=== PATIENT | female | born 1960 | race Caucasian/White ===

== ENCOUNTER → 2023-10-05 | Outpatient (CLI) | payer OTHER, SELFPAY ==
[2023-10-05 16:12] LABS: Erythrocyte Sedimentation Rate 11 mm/hr (0-30)
[2023-10-05 16:15] LABS: Absolute Lymphocyte Count 1.69 X10^3/uL (0.83-4.51); Absolute Neutrophil Count 5.4 X10^3/uL (2.0-7.7); Basophil# 0.07 X10^3/uL; Basophil% 0.9 % (0-1); Eosinophil# 0.09 X10^3/uL; Eosinophils% 1.1 % (0-5); Hematocrit 45.5 % (37-47); Hemoglobin 14.6 g/dL (12.0-15.0); Lymphocyte # 1.69 X10^3/ul (0.83-4.51); Lymphocyte % 21.4 % (19-41); Mean Corp Hgb Conc 32.1 g/dL (32-36); Mean Corpuscular Hgb 29.7 pg (27.0-32.0); Mean Corpuscular Volume 92.5 fL (81-99); Mean Platelet Vol. 10.9 fl (6.2-12.0); Monocyte% 7.6 % (0-10); NRBC Flagged by Analyzer 0 % (0-5); Neutrophil # 5.41 X10^3/uL (2.7-7.7); Neutrophil % 68.7 % (47-70); Platelet Count 300 K/mm3 (150-450); RBC Distribution Width CV 12.9 % (11.6-14.6); RBC Distribution Width SD 43.4 fl (35.1-43.9); Red Blood Count 4.92 M/mm3 (4.2-5.4); White Blood Count 7.9 K/mm3 (4.4-11.0)
[2023-10-05 16:44] LABS: AST(SGOT) 23 U/L (15-37); Alanine Aminotransfer ALT/SGPT 33 U/L (13-56); Albumin, Serum 4.1 g/dL (3.2-5.0); Alkaline Phosphatase 90 U/L (45-117); Anion Gap 6 (5-15); BUN 14 mg/dL (7-18); CRP < 2.90 mg/L (0.0-3.0); Calcium,Total 9.5 mg/dL (8.5-10.1); Chloride 106 mmol/L (98-107); Creatinine, Serum 0.93 mg/dL (0.55-1.02); EST Glomerular Filtration Rate 65 mL/min (>60); Est Glom Filt Rate - Afr Amer 78 mL/min (>60); Globulin 4.1 g/dL (2.2-4.2); Glucose 94 mg/dL (74-106); LDH 175 U/L (84-246); Lipase 39 U/L (13-75); Potassium 4.2 mmol/L (3.5-5.1); Protein, Total 8.2 g/dL (6.4-8.2); Sodium Level 138 mmol/L (136-145)
[2023-10-08 12:10] LABS: Anti-Mitochondrial AB <20.0 Units (0.0-20.0)
[2023-10-11 00:06] LABS: ACCA 8 units (0-90); ALCA 10 units (0-60); AMCA 9 units (0-100); Cytoplasmic Ab (C-ANCA) <1:20 titer (Neg:<1:20); Endomysial Antibody IgA Negative (Negative); Gastrin, Serum 100 pg/mL (0-115); Immunoglobulin A 192 mg/dL (87-352); Immunoglobulin E 24 IU/mL (6-495); Immunoglobulin G 1261 mg/dL (586-1602); Immunoglobulin M 94 mg/dL (26-217); Perinuclear Ab (P-ANCA) <1:20 titer (Neg:<1:20); gASCA 0 units (0-50); t-Transglutaminase IgA <2 U/mL (0-3)
== END | disposition home or self-care (01) ==
DX: R10.9 Unspecified abdominal pain (principal)
CPT/HCPCS: 36415; 80053; 82784; 82785; 82941; 83516; 83615; 83690; 85025; 85652; 86036; 86140; 86255; 86256; 86316; 86671

== ENCOUNTER 2023-10-20 13:11 | Day surgery (SDC) | payer OTHER, SELFPAY ==
[2023-10-20] VITALS (8 sets, daily range): BP systolic 100–127; BP diastolic 52–70; PULSE 58–77; RESP 16–18; TEMP 36.2–36.6; O2SAT 97–100; BMI 33.6
--- NOTE | 2023-10-20 | GASB_PTH ---
PATIENT: JAMIE DESAI LOC: EN U#:[id number] AGE/SX: 63/F ROOM: RE10/20/[address]: Dr. Felipe Hicks DO : 1960 BED: DIS: 10/20/2023 SPEC #: [id number] RECD: 10/20/23 18:33 STATUS: DORIS LO #: [id number] HARJEET: 10/20/23 00:[address]: Felipe Hicks DEPT: SURGICAL PATHOLOGY RECD BY: Nikhil Oneill Tissues: A - Duodenum, NOS B - Gastric mucous membrane C - Esophageal mucous membrane Procedures: Special Stain Group I Surgery Specimen Level IV Alcian Blue/PAS (control) HEADER OPERATION: EGD with biopsy PRE-OP DIAGNOSIS: Abdominal pain TISSUE SUBMITTED: A- Duodenum biopsy, B- Gastric body biopsy, C- Distal esophagus biopsy MICROSCOPIC DIAGNOSIS A. Duodenum, biopsy: No pathologic change. B. Gastric body, biopsy: Mild chronic gastritis. C. Distal esophagus, biopsy: Gastroesophageal junction biopsy with mild chronic inflammation. No evidence of goblet cell metaplasia. See comment. Te 10/22/2023 COMMENT B. The results of immunohistochemistry for Helicobacter pylori will be reported separately ([id number]). C. Alcian blue/PAS stain with matched control is used in the evaluation of the specimen. MICROSCOPIC DESCRIPTION Slides are reviewed. GROSS DESCRIPTION A. Received in fixative is one container labeled with the patient's name and designated Duodenum biopsy. The specimen consists of multiple irregular fragments of light [place] soft tissue that in aggregate measure 0.9 x 0.3 x 0.1 cm. The specimen is totally submitted in one cassette. B. Received in fixative is one container labeled with the patient's name and designated Gastric body biopsy. The specimen consists of multiple irregular fragments of light [place] soft tissue that in aggregate measure 1.0 x 0.2 x 0.1 cm. The specimen is totally submitted in one cassette. C. Received in fixative is one container labeled with the patient's name and designated Distal esophagus biopsy. The specimen consists of two irregular fragments of light [place] soft tissue that in aggregate measure 0.6 x 0.3 x 0.1 cm. The specimen is totally submitted in one cassette. 10/21/2023 TC:3 CPT:14180p2,88687
[2023-10-20] MEDS: Lactated Ringers 1,000 ML 15 ML IV (13:35)
--- NOTE | 2023-10-20 14:07 | PRE.ANES_ITS ---
ASA Classification* ASA Classification ASA Classification: 2 Assessment & Plan Anesthesia* Anesthesia Assessment Anesthesia Assessment: Discussed sedation and/or anesthesia options, risks, benefits, and alternatives with patient/parents/legal guardian/POA. Questions invited. The patient/parents/legal guardian/POA seems to understand and agrees to proceed with anesthesia plan. Reviewed the physical assessment, medical history, allergy history and patient home medications list prior to surgery/procedure/anesthetic and documented any changes. Performed airway and anesthesia risk assessments. Anesthesia Type Anesthesia Type: MAC (see written pre anesthesia record for full assessment) Anesthesia Focused Assessment* Temperature: 97.3 F Pulse Rate: 64 Blood Pressure: 127/70 Respiratory Rate: 16 Pulse Ox: 100 Airway Assessment Mouth opens: >3 cm Mallampati Score: II Focused Labs Anesthesia Preop lab: CBC WBC 7.9 K/mm3 (4.4-11.0) 10/05/23 15:32 RBC 4.92 M/mm3 (4.2-5.4) 10/05/23 15:32 Hgb 14.6 g/dL (12.0-15.0) 10/05/23 15:32 Hct 45.5 % (37-47) 10/05/23 15:32 Plt Count 300 K/mm3 (150-450) 10/05/23 15:32 CHEMISTRY Potassium 4.2 mmol/L (3.5-5.1) 10/05/23 15:32 Sodium 138 mmol/L (136-145) 10/05/23 15:32 BUN 14 mg/dL (7-18) 10/05/23 15:32 Creatinine 0.93 mg/dL (0.55-1.02) 10/05/23 15:32 Glucose 94 mg/dL (74-106) 10/05/23 15:32 COAG Pre-Assessment Diagnosis/Proposed Procedure Planned Operative Procedure(s): EGD Anesthesia History Anesthesia History - stem frazer: Anesthesia History - stem frazer Hx Hospitalization No 10/14/23 13:27 Any Problems With Anesthesia Yes: CAN BECOME VIOLENT IF 10/14/23 13:27 NOT COMPLETELY SEDATED Cholinesterase deficiency No 10/14/23 13:27 You/Your Family Experience No 10/14/23 13:27 fever (hyperthermia) with Relationship Recent Exposure to Contagious No 10/20/23 13:32 Disease Does patient have nerve No 10/14/23 13:27 stimulator Patient instructed to have device shut off --Does patient have Pacemaker No 10/20/23 13:32 or ICD? When Was Last Pacemaker Check QUESTION #4 FULL TEXT: You/Your Family Experience fever (hyperthermia) with Anesthesia Last Oral Intake Last Oral intake: Last Oral Intake NPO since 07:00 10/20/23 13:32 Meds taken in AM with sips of Yes 10/20/23 13:32 water? Meds patient instructed to omeprazole 10/20/23 13:32 take am of surgery PONV PONV - stem frazer: PONV - stem frazer Female Yes 10/14/23 13:27 HX of Motion Sickness No 10/14/23 13:27 HX of N/V After Surgery No 10/14/23 13:27 Non-Smoker Yes 10/14/23 13:27 Duration of Surgery greater No 10/14/23 13:27 than 60 minutes Number of Risk Factors 2 10/14/23 13:27 PONV Score Moderate Risk 10/14/23 13:27 Height & Weight Height & Weight: Anesthesia: Height & Weight Height 5 ft 6 in 10/20/23 13:32 Weight: 94.5 kg 10/20/23 13:32 Body Mass Index (BMI) 33.6 10/20/23 13:32 Respiratory Assessment Respiratory Assessment - stem frazer: Respiratory Tract Infection Hx - stem frazer Hx Respiratory Tract Infection No 10/14/23 13:27 STOP Sleep Apnea STOP Sleep Apnea - stem frazer: STOP Sleep Apnea - stem frazer Hx Hypertension No 10/14/23 13:27 Hx Sleep Apnea No 10/14/23 13:27 CPAP BIPAP Do you snore loudly (louder No 10/14/23 13:27 than talking or can be heard Do you often feel tired/ No 10/14/23 13:27 fatigued/ sleepy during daytime? Has anyone observed you stop No 10/14/23 13:27 breathing during sleep? STOP Results Negative 10/14/23 13:27 QUESTION #5 FULL TEXT : Do you snore loudly (louder than talking or can be heard through closed doors)? 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 Specify any problems Hx of Preganancy in last 3 No 10/14/23 13:27 Months Nurse Filling Out Transfusion VLEHMAN 10/14/23 13:27 & Questions: Date: 10/14/23 10/14/23 13:27 Time: 13:40 10/14/23 13:27 Patient unable to answer at this time (ie. confused, unrespo /Reproduction History /Reproductive History - stem frazer: /Reproductive Hx- stem frazer Hx Now No 10/14/23 13:27 Gestational Age (in weeks): EDC: Hx Hx Para Hx Section SAB No 10/14/23 13:27 Active Medications Active Medications: Current Medications Generic Name Dose Route Start Last Admin Trade Name Freq PRN Reason Stop Dose Admin Lactated Ringer's 1,000 mls @ 15 mls/hr 10/20/23 13:30 10/20/23 13:35 IV 15 mls/hr .Q48H ANGELIKA Administration PFSH Medical History Wears glasses Depression Arthritis Fatty liver High cholesterol Migraine headache History of hiatal hernia History of IBS Gastric reflux Non-smoker History of echocardiogram History of ectopic Home Medications ?Medication ?Instructions ?Recorded ?Last Taken ?Type dicyclomine 20 mg tablet 20 mg PO Q6H PRN PRN abdominal 10/05/23 Unknown Rx pain #90 tabs magnesium citrate 100 mg tablet 100 mg PO DAILY 10/05/23 Unknown History ondansetron 4 mg disintegrating 4 mg PO Q6H 10/05/23 Unknown History tablet sucralfate 1 gram tablet (Carafate) 1 g PO QAC #90 tabs 10/05/23 Unknown Rx famotidine 20 mg tablet 20 mg PO QHS 10/14/23 Unknown History omeprazole 20 mg capsule,delayed 20 mg PO DAILY 10/14/23 10/20/23 History release Allergy/AdvReac Type Severity Reaction Status Date / Time acetaminophen (From Percocet) Allergy Severe Vomiting Verified 10/20/23 13:45 morphine Allergy Severe Vomiting Verified 10/20/23 13:45 oxycodone (From Percocet) Allergy Severe Vomiting Verified 10/14/23 13:21 Sulfa (Sulfonamide Allergy Severe Vomiting Verified 10/20/23 13:45 Antibiotics) levofloxacin (From Levaquin) Allergy Intermediate Pain in Verified 10/20/23 13:45 joints bacitracin Allergy Mild Itching Verified 10/20/23 13:45 erythromycin base AdvReac Severe Upset Verified 10/20/23 13:45 Stomach Surgical History History of tonsillectomy History of tubal ligation History of cervical spinal surgery History of thyroidectomy, subtotal History of History of Grayson fundoplication Social History Smoking Status: Never smoker Review of Systems (Anesthesia) ROS Narrative System reviewed and no additional complaints, except as documented.
--- NOTE | 2023-10-20 14:13 | PCM.HP.BLA ---
History and Physical Date of Admission: 10/20/23 Pretty Kaplan, is a 63 F who presents to the office today for establishment with [facility] and for complaints of severe epigastric abdominal pain that radiates toward right upper quadrant and around to below right shoulder blade. Pain started immediately after dinner at a [place] restaurant on September 10, 2023. She originally thought it was the stomach flu, as close family had just gotten over something. She denies fever, chills. States unable to vomit since her history of Grayson fundoplication in 2009, but has severe nausea and a badly bloated feeling. Denies diarrhea, complaints of normal constipation for which she takes magnesium capsules and occasional Dulcolax rectal suppository. States that she feels better when laying down, worse when sitting or standing. Pain immediately worse after eating. Describes pain as stabbing, cramping, burning from throat down to her stomach. Complains of not being able to see straight, feels like room is spinning which started same date as abdominal symptoms relieved briefly by promethazine tablet prescribed by PCP. Patient seen in 2 different emergency departments, most recent visit 10/02/23 where she was placed on famotidine and promethazine; RUQ abd US showed hepatic steatosis, no gallbladder wall thickening, no stones, CBD measuring 3mm, no ductal dilation. ROS Const Constitutional: Positive for anorexia, fatigue, headache(s), weight change (loss), abnormal sleep pattern and change in appetite; No body ache, chills or fever(s) Eyes Eyes: Positive for blurry vision and visual disturbances ENT ENT: Positive for dizziness/vertigo, headache(s) and sore throat; No abnormal hearing or difficulty swallowing Resp Respiratory: No cough Cardio Cardiology: No chest pain at rest or chest pain with exertion Gastro GI: Positive for abdominal pain, bloating, constipation and nausea/dyspepsia; No belching, change in bowel habits, change in stool character, coffee ground emesis, cramping, diarrhea, heartburn, difficulty swallowing, feeling full early, excessive flatus, incontinent of stools, Vomiting blood/hematemesis, Blood in stool, loose stools, Black,tarry stools, pain with swallowing, vomiting or other Genitourinary-Female: No difficulty urinating Musc Musculoskeletal: Positive for joint pain, back pain, muscle cramps, numbness (left hand), stiffness and tingling (Left hand) Skin Skin: No yellowing of the eye or itchy eyes Neuro Neurology: Positive for dizziness, headache(s), numbness (left hand), tingling (Left hand) and visual disturbances; No abnormal hearing Psych Psychiatric: Positive for abnormal sleep pattern, No anxiety, Positive for change in appetite and No depression Endo Endocrine: Positive for fatigue and weight change (loss) Aller/Imm Allergy/Immunologic: No food intolerance or itchy eyes Ha/Lymp Hematologic/Lymphatic: No easy bleeding or easy bruising Exam Const General: cooperative, acute distress moderate (laying on her side,rubbing abd continuously) and well hydrated Nutritional Appearance: well nourished and obese Orientation: alert and oriented x3 HENMT Head: normal to inspection Ears: hearing grossly normal bilaterally Nose: external nose normal Face and sinus: normal facial exam Mouth: oral mucosae normal Eyes General: appearance normal, both eyes and all related structures Visual Perrin: normal visual perrin by confrontation Conjunctivae: conjunctivae normal Sclera: sclerae normal Pupils: PERRL Neck Neck: normal visual inspection and full ROM Chest Chest palpation & inspection: normal inspection of the chest Resp Effort & Inspection: normal respiratory effort Cardio Rate: regular rate Rhythm: regular rhythm GI Inspection: distended and obesity Auscultation: hyperactive bowel sounds Palpation: soft and no hepatosplenomegaly Musc Cervical Spine: scars present Skin General: no rashes or lesions noted and ecchymosis (from lab draws) Neuro General: patient alert, patient oriented x3 and moves all extremities Cognition: normal cognition Speech: speech normal Gait: normal gait Extrem General: normal to inspection and full ROM Psych Appearance: grossly normal Mental Status: mental status grossly normal Mood: anxious mood Affect: animated Speech and Movement: speech and movement normal Attitude: avoids eye contact Thought Process: normal Thought Content: normal Assessment and Plan Assessment and Plan (1) Abdominal pain: Status: Acute Qualifiers: Abdominal location: epigastric Qualified Code(s): R10.13 - Epigastric pain Plan: Patient is here today for establishment with [facility] for acute epigastric abdominal pain that radiates toward RUQ and to below right shoulder blade. Pain started immediately after eating dinner at a [place] restaurant on 09/10/23. Has history of Grayson fundoplication in 2009, left oophorectomy with abdominal adhesion removal. No history of food allergies or intolerances. History of H.pylori infection/treatment prior to Grayson. Differential diagnoses include IBD, IBS, gastritis, cholecystitis, foodborne illness. Cologuard screening test 12 months ago, last EGD 8 years ago. IBD extended panel, celiac panel, CBC, CMP, lipase; stool for O&P/Giardia, lactoferrin, WBC, calprotectin, fat EGD for evaluation, biopsy symptom management with sucralfate, omeprazole, dicyclomine; D/C esomeprazole follow up in 3 months Orders: Orders Calprotectin, Stool Today R10.9 - Unspecified abdominal pain CRP Today R10.9 - Unspecified abdominal pain Erythrocyte Sed Rate Today R10.9 - Unspecified abdominal pain LDH Today R10.9 - Unspecified abdominal pain Stool Lactoferrin/WBC Today K58.9 - Irritable bowel syndrome without diarrhea, R10.9 - Unspecified abdominal pain Gastrin, Serum Today R10.9 - Unspecified abdominal pain Chromogranin A Today R10.9 - Unspecified abdominal pain CBC W/Diff, Automated Today R10.9 - Unspecified abdominal pain Comprehensive Metabolic Profil Today R10.9 - Unspecified abdominal pain Lipase Today R10.9 - Unspecified abdominal pain ANCA Today R10.9 - Unspecified abdominal pain Immunoglobulin E Today R10.9 - Unspecified abdominal pain Immunoglobulin G Today R10.9 - Unspecified abdominal pain Immunoglobulin M Today R10.9 - Unspecified abdominal pain Anti-Mitochondrial AB Today R10.9 - Unspecified abdominal pain Celiac Disease Profile Today R10.9 - Unspecified abdominal pain IBD Expanded Profile Today R10.9 - Unspecified abdominal pain Pancreatic Elastase, Fecal Today R10.9 - Unspecified abdominal pain Fecal Fat, Qualitative Today R10.9 - Unspecified abdominal pain OVA+PARA w/Giardia EIA [id number] Today R10.13 - Epigastric pain Medications: New dicyclomine 20 mg PO Q6H PRN PRN 90 tabs 0RF abdominal pain MDD 80mg omeprazole 20 mg PO BID 1 month 60 caps 2RF sucralfate (Carafate) 1 g PO QAC 90 tabs 1RF Discontinued esomeprazole magnesium Discontinued Reason: Order Changed 40 mg PO DAILY I have examined the patient and the H&P has been reviewed. There are no clinical changes since date of exam.
--- NOTE | 2023-10-20 14:27 | OP.EGD_ITS ---
Patient Name: Pretty Kaplan Procedure Date: 10/20/2023 2:12 PM Date of : 1960 Age: 63 Procedure: Upper GI endoscopy Indications: Epigastric abdominal pain Providers: Felipe Hicks DO Medicines: Monitored Anesthesia Care Patient Profile: This is a 63 year old female. Refer to note in patient chart for documentation of history and physical. Patient has symptoms of chronic right upper quadrant abdominal pain and chronic epigastric abdominal pain. Complications: No immediate complications. Procedure: Pre-Anesthesia Assessment: - Prior to the procedure, a History and Physical was performed, and patient medications and allergies were reviewed. The patient is competent. The risks and benefits of the procedure and the sedation options and risks were discussed with the patient. All questions were answered and informed consent was obtained. Patient identification and proposed procedure were verified by the physician in the pre-procedure area. Mental Status Examination: alert and oriented. Airway Examination: normal oropharyngeal airway and neck mobility. Respiratory Examination: clear to auscultation. CV Examination: normal. Prophylactic Antibiotics: The patient does not require prophylactic antibiotics. Prior Anticoagulants: The patient has taken no anticoagulant or antiplatelet agents except for NSAID medication. ASA Grade Assessment: II - A patient with mild systemic disease. After reviewing the risks and benefits, the patient was deemed in satisfactory condition to undergo the procedure. The anesthesia plan was to use monitored anesthesia care (MAC). Immediately prior to administration of medications, the patient was re-assessed for adequacy to receive sedatives. The heart rate, respiratory rate, oxygen saturations, blood pressure, adequacy of pulmonary ventilation, and response to care were monitored throughout the procedure. The physical status of the patient was re-assessed after the procedure. After obtaining informed consent, the endoscope was passed under direct vision. Throughout the procedure, the patient's blood pressure, pulse, and oxygen saturations were monitored continuously. The Endoscope was introduced through the mouth, and advanced to the duodenal bulb. The upper GI endoscopy was accomplished without difficulty. The patient tolerated the procedure well. Scope In: 2:18:17 PM Scope Out: 2:23:16 PM Total Procedure Duration Time 0 hours 4 minutes 59 seconds Findings: The Z-line was irregular and was found 40 cm from the incisors. Biopsies were taken with a cold forceps for histology. Verification of patient identification for the specimen was done. Estimated blood loss was minimal. Evidence of a Grayson fundoplication was found in the gastric fundus. The wrap appeared intact. This was traversed. Patchy mildly erythematous mucosa without bleeding was found in the gastric body. Biopsies were taken with a cold forceps for histology. Verification of patient identification for the specimen was done. Biopsies were taken with a cold forceps for Helicobacter pylori testing. Verification of patient identification for the specimen was done. Estimated blood loss was minimal. Patchy mildly erythematous mucosa without active bleeding and with no stigmata of bleeding was found in the duodenal bulb. Biopsies were taken with a cold forceps for histology. Verification of patient identification for the specimen was done. Estimated blood loss was minimal. Impression: - Z-line irregular, 40 cm from the incisors. Biopsied. - A Grayson fundoplication was found. The wrap appears intact. - Erythematous mucosa in the gastric body. Biopsied. - Erythematous duodenopathy. Biopsied. Recommendation: - Discharge patient to home. - Resume previous diet. - Continue present medications. - Await pathology results. Procedure Code(s): --- Professional --- 05321, Esophagogastroduodenoscopy, flexible, transoral; with biopsy, single or multiple CPT copyright 2021 [employer]. All rights reserved. The codes documented in this report are preliminary and upon assistant manager pt review may be revised to meet current compliance requirements. Felipe Hicks DO 10/20/2023 2:27:37 PM This report has been signed electronically. Number of Addenda: 0 Note Initiated On: 10/20/2023 2:12 PM
--- NOTE | 2023-10-20 14:28 | OP.CCLET_ITS ---
10/20/2023 Lady Nguyen Re : Upper GI endoscopy procedure for Pretty Kaplan Dear Patrick This procedure was performed on Friday, October 20, 2023. My impressions and recommendations are as follows: Impressions : - Z-line irregular, 40 cm from the incisors. Biopsied. - A Grayson fundoplication was found. The wrap appears intact. - Erythematous mucosa in the gastric body. Biopsied. - Erythematous duodenopathy. Biopsied. Recommendations : - Discharge patient to home. - Resume previous diet. - Continue present medications. - Await pathology results. My findings are described in the full procedure note, which is enclosed. If I can be of further assistance, please feel free to contact me at . Sincerely, Felipe Friend, 10/20/2023 2:27:37 PM This report has been signed electronically.
--- NOTE | 2023-10-20 14:30 | IMM_PTH ---
PATIENT: JAMIE DESAI LOC: EN U#:[id number] AGE/SX: 63/F ROOM: RE10/20/[address]: Dr. Felipe Hicks DO : 1960 BED: DIS: 10/20/2023 SPEC #: [id number] RECD: 10/21/23 09:10 STATUS: DORIS WALLY #: [id number] HARJEET: 10/20/23 14:[address]: Felipe Hicks DEPT: IMMUNOHISTOCHEMISTRY RECD BY: Dominic Leong Tissues: B - Gastric mucous membrane Procedures: H Pylori (initial) PHYSICIAN & [place] [id number] SPECIMEN INFORMATION: Tissue Source: B- Gastric body biopsy Clinical Info: Abdominal pain Specimen Number: [id number] CPT code: 26941 METHODOLOGY: Deparaffinized sections of prefer/formalin-fixed tissue or PAP/DQ stained slides are incubated with monoclonal/polyclonal antibodies/oligonucleotide probes. Localization is made via biotin free immunoperoxidase method. Appropriate controls are performed and reacted as expected. Results on target cell population are indicated in the following table: RESULTS: ANTIBODY / CLONE RESULT Block B H Pylori (polyclonal) negative These tests were developed and their performance characteristics determined by [facility]. They may not have been cleared or approved by the U.S. Food and Drug Administration. The FDA has determined that such clearance or approval is not necessary. The above immunohistochemical/dualISH markers are ordered and reviewed by the Pathologist. INTERPRETATION: B. Gastric body, biopsy: Negative for Helicobacter pylori organisms. PIPER/ 10/22/2023
--- NOTE | 2023-10-20 14:32 | PCM.POST.ANE ---
Anesthesia: Postop Eval I Current Vital Signs Temperature: 97.9 F Pulse Rate: 77 Blood Pressure: 100/65 Respiratory Rate: 16 Pulse Ox: 98 Oxygen Delivery Method: Room Air Assessment Airway patent: Yes Spontaneous unlabored respirations: Yes Mental status: Asleep nausea: No Vomiting: No Anesthesia Complication: No Fluid Hydration Crystalloid volume administer (ml): 400 Total IV fluid infused: 400 Progress Note Anesthesia document: Postop Eval 1 completed: Yes
--- NOTE | 2023-10-20 14:37 | PCM.POSTANE2 ---
Anesthesia Postop Eval I Sum Postop Eval Completion status Anesthesia document: Postop Eval 1 completed: Yes Anesthesia Postop Eval I Summary Anesthesia Postop Eval I Summary: Anesthesia Postop Eval I: Assessment Summary Airway patent Yes 10/20/23 14:33 [email or web address] Spontaneous unlabored Yes 10/20/23 14:33 [email or web address] respirations Mental status Asleep 10/20/23 14:33 [email or web address] nausea No 10/20/23 14:33 [email or web address] Vomiting No 10/20/23 14:33 [email or web address] Anesthesia Postop Eval I: Fluid Summary Crystalloid volume administer 400 10/20/23 14:33 [email or web address] (ml) Colloids volume administered ( ml) Blood Product volume administered (ml) Total IV fluid infused 400 10/20/23 14:33 [email or web address] Anesthesia Postop Eval I: Summary Notes Anesthesia Complication No 10/20/23 14:33 [email or web address] Anesthesia Complication Comment: Post-operative progress note Anesthesia: Postop Eval II Evaluation Mental status: Awake Pain Level: 0 nausea: No Vomiting: No
[2023-10-24 00:08] LABS: Pancreatic Elastase, Fecal 394 (>200)
[2023-10-26 20:08] LABS: Calprotectin, Stool 48 ug/g (0-120); Fats, Neutral Normal (.); Fats, Total Normal (.)
[2023-11-02 09:34] LABS: Anti-Parietal Cell AB, QN 1.4 Units (0.0-20.0); Dopamine, Pl <30 pg/mL (0-48); Epinephrine, Pl <15 pg/mL (0-62); Intrinsic Factor Ab 1.1 AU/mL (0.0-1.1); Norepinephrine, Pl 751 pg/mL (0-874)
== END 2023-10-20 15:19 | disposition home or self-care (01) ==
LOC: EN 13:16 → AC 13:17
PROVIDERS: Visit Provider Internal Medicine Gastroenterology
PROC: 0DJ08ZZ Inspection of Upper Intestinal Tract, Via Natural or Artificial Opening Endoscopic (ICD-10-PCS; CPT 43235; principal; 2023-10-20 14:25)
DX: K21.00 Gastro-esophageal reflux disease with esophagitis, without bleeding (principal); E66.9 Obesity, unspecified; Z98.890 Other specified postprocedural states; K58.9 Irritable bowel syndrome, unspecified; K29.50 Unspecified chronic gastritis without bleeding; Z79.899 Other long term (current) drug therapy; E78.00 Pure hypercholesterolemia, unspecified; Z87.19 Personal history of other diseases of the digestive system
CPT/HCPCS: 43239; 36415; 82384; 82653; 82705; 83516; 83630; 83993; 86340; 87177; 87209; 87329; 88305; 88312; 88342; J7120; J2405

== ENCOUNTER → 2023-10-24 | Outpatient (CLI) | payer OTHER, SELFPAY | END | disposition home or self-care (01) | PROVIDERS: Referring Provider Internal Medicine Gastroenterology; Visit Provider Internal Medicine Gastroenterology | DX: R10.11 Right upper quadrant pain (principal) | CPT/HCPCS: 82384; 84585 ==

== ENCOUNTER → 2023-11-12 | Outpatient (CLI) | payer OTHER, SELFPAY ==
--- NOTE | 2023-11-12 11:48 | NM_ITS ---
CLINICAL: 63-year-old female with history of abdominal pain status post fundoplication. SEMI-SOLID PHASE 99m Tc SULFUR COLLOID GASTRIC EMPTYING STUDY COMPARISON: None available FINDINGS: The patient was administered 1.1 mCi of 99m Tc sulfur colloid mixed with oatmeal and consumed per os. Image acquisitions in the anterior-posterior projections were obtained for 60 minutes. There is prompt visualization of the stomach. There is no gastroesophageal reflux identified. The T ? raw data emptying was calculated to be 27.4 minutes, (Normal: 12-56 minutes). NM/Gastric Emptying Study IMPRESSION: 1. NORMAL 99m Tc sulfur colloid semi-solid phase (oatmeal) gastric emptying imaging examination. A. There is normal and preserved semi-solid phase gastric emptying compared to normal controls. (Maryan et al, J Nucl Med Tech 38: 186, 2010). Electronically Signed: Madi Jain DO at 10:07 EDT ,
== END | disposition home or self-care (01) ==
LOC: NM 11:45
PROVIDERS: Referring Provider Internal Medicine Gastroenterology; Visit Provider Internal Medicine Gastroenterology
DX: R10.11 Right upper quadrant pain (principal); R14.0 Abdominal distension (gaseous)
CPT/HCPCS: 78264; A9541

== ENCOUNTER 2023-11-23 07:19 | Emergency (ER) | payer OTHER, SELFPAY ==
[2023-11-23 07:19] VITALS: BP 139/93; PULSE 77; RESP 16; TEMP 36.7; O2SAT 97; BMI 32.5
--- NOTE | 2023-11-23 07:37 | US_ITS ---
STUDY: ABDOMINAL ULTRASOUND - RIGHT UPPER QUADRANT REASON FOR VISIT: Female, 63 years old Epigastric/RUQ abdominal pain TECHNIQUE: Ultrasound evaluation of the right upper quadrant was performed with real-time and static perrin-scale imaging. TECHNICAL QUALITY: Adequate. COMPARISON: None. FINDINGS: Liver: The liver measures 16.6 cm. There is increased echogenicity consistent with fatty infiltration. The bile ducts are within normal limits. There is hepatic color flow. The direction of portal flow is hepatopetal. There is no demonstrated mass lesion. Gallbladder: Normal distended gallbladder. The gallbladder wall measures 2 mm. There is a negative sonographic Avendano''s sign. There is no pericholecystic fluid. There are no gallstones. Common Bile Duct (C.B.D.): The common bile duct measures 3 mm. Pancreas: Normal size of the head, body and tail of the pancreas. There is normal echogenicity of the pancreas. There is no demonstrated pancreatic mass or cyst. Right Kidney: Normal size of the right kidney. The right kidney measures 11.1 cm. Normal renal cortex. The right cortex measures 1.3 cm. There is no demonstrated renal mass or cyst. There is no right hydronephrosis. US/Abdomen Limited IMPRESSION: Fatty infiltration liver. Electronically Signed: Madi Mack MD at 9:10 EDT ,
--- NOTE | 2023-11-23 07:40 | EDS_ITS ---
HPI History of Present Illness Chief Complaint: Abd Pain Narrative Narrative: Chief complaint and HPI: Abdominal pain. 63-year-old female presents for evaluation of epigastric/right upper quadrant abdominal pain. Patient has been having intermittent pain in this area since September. She follows with Dr. Hicks. Patient states that she has had multiple ER visits at [place] for this complaint. She has had a negative cardiac workup. She states she recently just had an EGD with Dr. Hicks that was relatively unremarkable. She states Dr. Hicks is worried about her gallbladder despite negative ER ultrasounds in the past. She is currently on Protonix, Pepcid, Carafate, Bentyl for pain. Patient states this pain started on Thursday and has not improved. She endorses nausea but denies emesis. Denies any fever, chills, shortness of breath, chest pain, diarrhea, constipation, dysuria. Has heartburn. Review of systems: See HPI Medications: As listed on the chart Allergies: As listed on the chart PFSH: Per chart Vital signs: As listed on the chart. Reviewed. Physical exam: Gen: A&O x3, NAD Head: Normocephalic, atraumatic Eyes: No sclera icterus, conjunctiva clear ENT: Moist mucous membranes Neck: Trachea midline, No JVD CV: RRR, no murmurs, no peripheral edema Resp: Lungs CTA BL, no w/r/c GI: Abd soft, non-distended, tender in the epigastrium and right upper quadrant, no r/r/g, negative Avendano's Musc: Full ROM, no deformity Skin: Warm, dry Neuro: Alert, oriented, grossly intact, sensation intact Psych: Cooperative, appropriate mood and affect [facility] Medical History Wears glasses Depression Arthritis Fatty liver High cholesterol Migraine headache History of hiatal hernia History of IBS Gastric reflux Non-smoker History of echocardiogram History of ectopic Home Medications ?Medication ?Instructions ?Recorded ?Last Taken ?Type dicyclomine 20 mg tablet 20 mg PO Q6H PRN PRN abdominal 10/05/23 Unknown Rx pain #90 tabs magnesium citrate 100 mg tablet 100 mg PO DAILY 10/05/23 Unknown History ondansetron 4 mg disintegrating 4 mg PO Q6H 10/05/23 Unknown History tablet sucralfate 1 gram tablet (Carafate) 1 g PO QAC #90 tabs 10/05/23 Unknown Rx omeprazole 20 mg capsule,delayed 20 mg PO DAILY 10/14/23 10/20/23 History release famotidine 20 mg tablet 20 mg PO QHS #90 tabs 10/23/23 Unknown Rx Allergy/AdvReac Type Severity Reaction Status Date / Time acetaminophen (From Percocet) Allergy Severe Vomiting Verified 11/23/23 07:19 morphine Allergy Severe Vomiting Verified 11/23/23 07:19 oxycodone (From Percocet) Allergy Severe Vomiting Verified 11/23/23 07:19 Sulfa (Sulfonamide Allergy Severe Vomiting Verified 11/23/23 07:19 Antibiotics) levofloxacin (From Levaquin) Allergy Intermediate Pain in Verified 11/23/23 07:19 joints bacitracin Allergy Mild Itching Verified 11/23/23 07:19 erythromycin base AdvReac Severe Upset Verified 11/23/23 07:19 Stomach Surgical History History of tonsillectomy History of tubal ligation History of cervical spinal surgery History of thyroidectomy, subtotal History of History of Grayson fundoplication Social History Smoking Status: Never smoker EXAM Physical Exam Const Vital Signs: 11/23/23 07:19 11/23/23 09:19 Temperature 98.1 F Temperature Source Oral Pulse Rate 77 81 Respiratory Rate 16 Blood Pressure 139/93 H 148/71 H Blood Pressure Mean 108 96 Pulse Ox 97 Oxygen Delivery Method Room Air MDM MDM MDM Narrative Medical decision making narrative: 63-year-old female presents for evaluation of epigastric and right upper quadrant pain. Pain has been intermittent since September. Currently getting worked up by Dr. Hicks with GI. This episode of pain started Thursday. See physical exam findings. Differential diagnosis includes but is not limited to gastritis, PUD, pancreatitis, cholecystitis, biliary colic, choledocholithiasis. Morphine, Zofran, Pepcid ordered for symptoms. Abdominal workup ordered including ultrasound. on chart review, patient had an EGD on 10/20/[address] Hicks. Showed Z-line irregular. Grayson fundoplication without complication. Erythematous mucosa in the gastric body. Erythematous duodenopathy. Patient H. pylori negative. Patient declined morphine, has had Toradol in the past. Will give Toradol. CBC without leukocytosis. CMP relatively unremarkable. No transaminitis, hyperbilirubinemia. Lipase unremarkable. Ultrasound shows known fatty liver. Gallbladder unremarkable. No dilation of the common bile duct. On reexamination, patient states her pain has improved. Given that patient follows with Dr. Hicks and was told specifically by their office to present to our emergency department, we will contact him. Patient was discussed with Dr. Hicks. He agrees with discharge home. Follow-up outpatient. Will likely need HIDA scan patient updated of all results and confirmed understanding of plan. She is to continue all of her home medicines including Protonix, PPI, sucralfate. Impression: 1. Acute on chronic epigastric pain 2. Fatty liver Lab Data Labs: Laboratory Results - last 24 hr 11/23/23 07:50 WBC 5.8 RBC 4.35 Hgb 12.9 Hct 39.5 MCV 90.8 MCH 29.7 MCHC 32.7 RDW Std Deviation 42.3 RDW Coeff of Bill 12.7 Plt Count 259 MPV 11.3 Immature Gran % (Auto) 0.200 Neut % (Auto) 47.4 Lymph % (Auto) 37.9 [place] % (Auto) 11.3 H Eos % (Auto) 2.3 Baso % (Auto) 0.9 Absolute Neuts (auto) 2.7 Absolute Lymphs (auto) 2.18 Nucleated RBC % 0 Sodium 140 Potassium 3.6 Chloride 110 H Carbon Dioxide 25.0 Anion Gap 4 L BUN 9 Creatinine 0.98 Estim Creat Clear Calc 67.00 Est GFR (MDRD) Af Amer 74 Est GFR (MDRD) Non-Af 61 BUN/Creatinine Ratio 9.2 L Glucose 102 Calcium 9.7 Total Bilirubin 0.60 AST 25 ALT 33 Alkaline Phosphatase 85 Total Protein 7.0 Albumin 3.6 Globulin 3.4 Albumin/Globulin Ratio 1.1 Lipase 41 Radiography Diagnostic Testing: Clinical Impression(s) from Imaging Studies Abdomen Ultrasound 11/23/23 07:37 IMPRESSION: Fatty infiltration liver. Electronically Signed: Madi Mack MD at 9:10 EDT , Discharge Plan Triage Chief Complaint: Abd Pain ED Provider: Tyshawn Evans Dx/Rx/DC Orders Prescriptions: No Action magnesium citrate 100 mg tablet 100 mg PO DAILY ondansetron 4 mg tablet,disintegrating 4 mg PO Q6H dicyclomine 20 mg tablet 20 mg PO Q6H PRN MDD 80mg PRN (Reason: abdominal pain) Qty: 90 0RF sucralfate [Carafate] 1 gram tablet 1 g PO QAC Qty: 90 1RF omeprazole 20 mg capsule,delayed release(DR/EC) 20 mg PO DAILY famotidine 20 mg tablet 20 mg PO QHS Qty: 90 0RF Primary Care Provider: Je Rider Referrals: [facility] Doctor,Out of [Non-Staff] - Print Language: Swiss
[2023-11-23 07:55] LABS: Absolute Lymphocyte Count 2.18 X10^3/uL (0.83-4.51); Absolute Neutrophil Count 2.7 X10^3/uL (2.0-7.7); Basophil# 0.05 X10^3/uL; Basophil% 0.9 % (0-1); Eosinophil# 0.13 X10^3/uL; Eosinophils% 2.3 % (0-5); Hematocrit 39.5 % (37-47); Hemoglobin 12.9 g/dL (12.0-15.0); Lymphocyte # 2.18 X10^3/ul (0.83-4.51); Lymphocyte % 37.9 % (19-41); Mean Corp Hgb Conc 32.7 g/dL (32-36); Mean Corpuscular Hgb 29.7 pg (27.0-32.0); Mean Corpuscular Volume 90.8 fL (81-99); Mean Platelet Vol. 11.3 fl (6.2-12.0); Monocyte# 0.65 X10^3/uL; Monocyte% 11.3 % (0-10); NRBC Flagged by Analyzer 0 % (0-5); Neutrophil # 2.73 X10^3/uL (2.7-7.7); Neutrophil % 47.4 % (47-70); Platelet Count 259 K/mm3 (150-450); RBC Distribution Width CV 12.7 % (11.6-14.6); RBC Distribution Width SD 42.3 fl (35.1-43.9); Red Blood Count 4.35 M/mm3 (4.2-5.4); White Blood Count 5.8 K/mm3 (4.4-11.0)
[2023-11-23] MEDS: Famotidine 200 MG/20 ML MDV 20 MG in 0.9% Normal Saline (Pres. free 8 ML 300 MG IV (08:05)
[2023-11-23] MEDS: Ondansetron 4 MG/2 ML Vial IV (08:05)
[2023-11-23 08:23] LABS: ALB/GLOB Ratio 1.1 RATIO (0.9-2.4); AST(SGOT) 25 U/L (15-37); Alanine Aminotransfer ALT/SGPT 33 U/L (13-56); Albumin, Serum 3.6 g/dL (3.2-5.0); Alkaline Phosphatase 85 U/L (45-117); Anion Gap 4 (5-15); BUN 9 mg/dL (7-18); BUN/Creat Ratio 9.2 RATIO (10-20); Calcium,Total 9.7 mg/dL (8.5-10.1); Chloride 110 mmol/L (98-107); Creatinine, Serum 0.98 mg/dL (0.55-1.02); EST Glomerular Filtration Rate 61 mL/min (>60); Est Glom Filt Rate - Afr Amer 74 mL/min (>60); Globulin 3.4 g/dL (2.2-4.2); Glucose 102 mg/dL (74-106); Lipase 41 U/L (13-75); Potassium 3.6 mmol/L (3.5-5.1); Sodium Level 140 mmol/L (136-145)
[2023-11-23 09:19] VITALS: BP 148/71; PULSE 81
[2023-11-23] MEDS: Ketorolac 15 MG/ML Vial IV (09:40)
[2023-11-23 11:00] VITALS: BP 132/79
[2023-11-23 11:24] VITALS: BP 132/79; PULSE 82; RESP 16; TEMP 36.7; O2SAT 97
== END 2023-11-23 11:26 | disposition home or self-care (01) ==
PROVIDERS: Emergency Provider Surgery; Visit Provider Surgery
DX: R10.13 Epigastric pain (principal); G89.29 Other chronic pain; K76.0 Fatty (change of) liver, not elsewhere classified; E78.00 Pure hypercholesterolemia, unspecified; K21.9 Gastro-esophageal reflux disease without esophagitis
CPT/HCPCS: 76705; 80053; 83690; 85025; 96365; 96366; 96375; 99283; A4216; J2405; J3490

== ENCOUNTER 2023-12-22 14:36 | Emergency (ER) | payer OTHER, SELFPAY ==
[2023-12-22 14:40] VITALS: BP 114/65; PULSE 78; RESP 18; TEMP 36.6; O2SAT 98; BMI 31.6
[2023-12-22 15:06] LABS: Bacteria 0 SEEN /hpf (None Seen); Mucous, Urine 0 SEEN /hpf (<or=2+)
[2023-12-22 15:24] LABS: Color, Urine Yellow (Yellow); Glucose, Dipstick Normal (Normal); Ketone-Dipstick Negative (Negative); Leukocyte Esterase-Dipstick Negative /ul (Negative); Nitrite-Dipstick Negative (Negative); Occult Blood-Urine Negative /ul (Negative); Protein-Dipstick Negative (Negative); Urine Bilirubin Dipstick Negative (Negative); Urine Clarity Clear (Clear); Urine Urobilinogen Normal (Normal)
[2023-12-22 16:04] LABS: Absolute Lymphocyte Count 2.02 X10^3/uL (0.83-4.51); Basophil# 0.06 X10^3/uL; Basophil% 0.9 % (0-1); Eosinophil# 0.04 X10^3/uL; Eosinophils% 0.6 % (0-5); Hematocrit 42.7 % (37-47); Hemoglobin 13.8 g/dL (12.0-15.0); Lymphocyte # 2.02 X10^3/ul (0.83-4.51); Lymphocyte % 29.6 % (19-41); Mean Corp Hgb Conc 32.3 g/dL (32-36); Mean Corpuscular Hgb 29.7 pg (27.0-32.0); Mean Platelet Vol. 11.1 fl (6.2-12.0); Monocyte# 0.68 X10^3/uL; NRBC Flagged by Analyzer 0 % (0-5); Neutrophil % 58.6 % (47-70); Platelet Count 299 K/mm3 (150-450); RBC Distribution Width CV 12.6 % (11.6-14.6); RBC Distribution Width SD 42.3 fl (35.1-43.9); Red Blood Count 4.64 M/mm3 (4.2-5.4); White Blood Count 6.8 K/mm3 (4.4-11.0)
[2023-12-22 16:20] LABS: Red Blood Cells-Urine 0-5 SEEN /hpf (0-5); Squamous Epithelial Cells - UA 0-5 SEEN /hpf (5-10); White Blood Cells 0-5 SEEN /hpf (0-5)
[2023-12-22 16:23] LABS: ALB/GLOB Ratio 1.1 RATIO (0.9-2.4); AST(SGOT) 20 U/L (15-37); Alanine Aminotransfer ALT/SGPT 30 U/L (13-56); Albumin, Serum 3.9 g/dL (3.2-5.0); Alkaline Phosphatase 92 U/L (45-117); Anion Gap 5 (5-15); BUN 8 mg/dL (7-18); BUN/Creat Ratio 8.5 RATIO (10-20); Calcium,Total 9.4 mg/dL (8.5-10.1); Chloride 109 mmol/L (98-107); Creatinine, Serum 0.94 mg/dL (0.55-1.02); EST Glomerular Filtration Rate 64 mL/min (>60); Est Glom Filt Rate - Afr Amer 77 mL/min (>60); Estimated Creatinine Clearance 68.87 ml/min; Globulin 3.4 g/dL (2.2-4.2); Glucose 101 mg/dL (74-106); Potassium 4.4 mmol/L (3.5-5.1); Protein, Total 7.3 g/dL (6.4-8.2); Sodium Level 141 mmol/L (136-145)
--- NOTE | 2023-12-22 16:30 | CT_ITS ---
STUDY: CT FACIAL BONES WITHOUT CONTRAST REASON FOR EXAM: Female, 63 years old. Maxillary sinus pain, headaches RADIATION DOSAGE (If Supplied By Facility): CTDIvol = ( 29.38 ) mGy, DLP = ( 591.53 ) mGycm TECHNIQUE: The patient was scanned in a multi detector CT scanner. Sagittal and coronal images were reconstructed. Individualized dose optimization techniques were used for this CT. COMPARISON: None. FINDINGS: Normal soft tissue structures. Normal orbital doss and orbital contents. Normal nasal bones and anterior nasal spine. Normal facial bones. There is no demonstrated fracture. Near complete opacification of the right maxillary sinus consistent with chronic sinusitis. Mild mucosal thickening in several ethmoid air cells. No air-fluid levels. CT/Sinus/Facial Bone IMPRESSION: Near complete opacification of the right maxillary sinus related to chronic sinusitis. Electronically Signed: Aristeo Godoy MD at 17:29 EST ,
[2023-12-22 16:46] VITALS: BP 107/59; BP 108/65; BP 93/47; PULSE 52; PULSE 55; PULSE 60
--- NOTE | 2023-12-22 16:46 | ED.VIS.GI ---
HPI HPI - GI History of Present Illness Chief Complaint: Abd Pain Informant: patient Narrative Narrative: Patient is a 63-year-old female presenting with worsening dizziness, near syncope, nausea, abdominal cramping and diarrhea. She states starting on September 16 she had an episode of near syncope while at a restaurant and abdominal cramping as well as dizziness. She notes she was eating salsa that day. She has since had ongoing issues with this. She also notes that 2 weeks ago she was on a course of amoxicillin for 10 days for a sinus infection. She finished on Thursday. Since then she still been having toppling feeling with her vision and of fullness of her face. She states she has chronic ringing of her ears that has been worse. She does note that she is previously diagnosed with M?ni?re's disease and previously was on meclizine but is not currently seeing ENT. She denies any fevers. She has also had increased nausea, belching and diffuse cramping abdominal pain. She was that she has not had any vomiting but has had reflux. She has been following with Dr. Hicks from GI. She has recently had EGD and a gastric emptying test which she states was normal. She is scheduled for a HIDA scan. She was recently switched from omeprazole to famotidine to dexlansoprazole and feels that that is worsened her stomach symptoms. She states she has not taken the new medication in the past 2 days because of these worsening symptoms. She did take Bentyl and Zofran today which normally would help her symptoms but provided no relief. She came in for further evaluation and she cannot get a hold of her GI doctor. States that she is having regular diarrhea that small amounts every time she urinates. She states she is usually constipated so this is actually improved. Denies any black or blood in her stool. [facility] Medical History Wears glasses Depression Arthritis Fatty liver High cholesterol Migraine headache History of hiatal hernia History of IBS Gastric reflux Non-smoker History of echocardiogram History of ectopic Home Medications ?Medication ?Instructions ?Recorded ?Last Taken ?Type dicyclomine 20 mg tablet 20 mg PO Q6H PRN PRN abdominal 10/05/23 Unknown Rx pain #90 tabs magnesium citrate 100 mg tablet 100 mg PO DAILY 10/05/23 Unknown History sucralfate 1 gram tablet (Carafate) 1 g PO QAC #90 tabs 10/05/23 Unknown Rx dexlansoprazole 60 mg 60 mg PO QDAY #30 caps 12/17/23 Unknown Rx capsule,biphase delayed release (Dexilant) hyoscyamine sulfate 0.125 mg 0.125 mg sublingual TID PRN 12/22/23 Unknown Rx sublingual tablet (Symax-SL) dyspepsia #20 tabs meclizine 25 mg tablet 25 mg PO 4X/DAY PRN PRN Dizziness 12/22/23 Unknown Rx #20 tabs Allergy/AdvReac Type Severity Reaction Status Date / Time acetaminophen (From Percocet) Allergy Severe Vomiting Verified 12/22/23 14:40 morphine Allergy Severe Vomiting Verified 12/22/23 14:40 oxycodone (From Percocet) Allergy Severe Vomiting Verified 12/22/23 14:40 Sulfa (Sulfonamide Allergy Severe Vomiting Verified 12/22/23 14:40 Antibiotics) levofloxacin (From Levaquin) Allergy Intermediate Pain in Verified 12/22/23 14:40 joints bacitracin Allergy Mild Itching Verified 12/22/23 14:40 neomycin (From Neosporin Allergy Swelling Verified 12/22/23 14:40 ([id number])) polymyxin B (From Neosporin Allergy Swelling Verified 12/22/23 14:40 ([id number])) erythromycin base AdvReac Severe Upset Verified 12/22/23 14:40 Stomach Surgical History History of tonsillectomy History of tubal ligation History of cervical spinal surgery History of thyroidectomy, subtotal History of History of Grayson fundoplication Social History Smoking Status: Never smoker ROS ROS ED Constitutional Constitutional ED: Reports chills and sweats; Denies fever(s) ENT ENT ED: Reports other Details: Nasal congestion, worse than normal. Ringing in her ears?worse than normal ; Denies ear pain or rhinorrhea Cardiovascular Cardiovascular: Denies chest pain or palpitations Respiratory/Chest Respiratory/Chest: Denies cough or dyspnea Gastrointestinal Gastrointestinal: Reports abdominal pain, diarrhea and nausea; Denies melena or vomiting Genitourinary Genitourinary ED: Denies dysuria Musculoskeletal Musculoskeletal: Denies arthralgias or myalgias Integumentary Denies rash Neurologic Neurologic: Reports headache(s); Denies paresthesias or weakness EXAM Physical Exam Const Vital Signs: 12/22/23 14:40 12/22/23 16:46 12/22/23 17:11 Temperature 98 F Temperature Source Oral Pulse Rate 78 Pulse Rate [Lying] 52 L Pulse Rate [Sitting (for 1 minute prior to obtaining)] 55 L Pulse Rate [Standing (for 1 minute prior to obtaining)] 60 Respiratory Rate 18 Blood Pressure 114/65 96/49 L Blood Pressure [Lying] 93/47 L Blood Pressure [Sitting (for 1 minute prior to obtaining)] 108/65 Blood Pressure [Standing (for 1 minute prior to obtaining)] 107/59 L Blood Pressure Mean 81 64 Blood Pressure Mean [Lying] 62 Blood Pressure Mean [Sitting (for 1 minute prior to obtaining)] 79 Blood Pressure Mean [Standing (for 1 minute prior to obtaining)] 75 Pulse Ox 98 Oxygen Delivery Method Room Air 12/22/23 19:00 Temperature Temperature Source Pulse Rate Pulse Rate [Lying] Pulse Rate [Sitting (for 1 minute prior to obtaining)] Pulse Rate [Standing (for 1 minute prior to obtaining)] Respiratory Rate Blood Pressure 110/57 L Blood Pressure [Lying] Blood Pressure [Sitting (for 1 minute prior to obtaining)] Blood Pressure [Standing (for 1 minute prior to obtaining)] Blood Pressure Mean 74 Blood Pressure Mean [Lying] Blood Pressure Mean [Sitting (for 1 minute prior to obtaining)] Blood Pressure Mean [Standing (for 1 minute prior to obtaining)] Pulse Ox Oxygen Delivery Method Positive well nourished and well developed General Appearance ED: well developed; Negative for pallor HEENT Reports TM's clear and moist mucous membranes HEENT Narrative: Normal nares. Tenderness to palpation over the bilateral maxillary sinuses normocephalic Tympanic Membrane ED: Yes TM's clear Eyes PERRL and EOMs intact bilaterally Neck supple and no JVD Neck Narrative: No meningeal signs Resp normal respiratory effort and clear to auscultation bilaterally Cardio regular rate and regular rhythm GI non-tender and non-distended Auscultation: normoactive bowel sounds Palpation: soft; Negative for tender or guarding Extremity full ROM General Extremety ED: Negative for edema General Extremity: Negative for edema Neuro CN's II-XII intact bilaterally, moves all extremities and no sensory deficits noted Neuro Narrative: Normal finger-nose and [id number]. No ataxia appreciated Sensorium / Orientation: alert Motor Exam: strength 5/5 throughout Psych mental status grossly normal and thought process normal Mood & Affect: anxious Skin no wounds General Skin Exam: Negative for jaundice or pallor MDM MDM MDM Narrative Medical decision making narrative: Patient evaluated for constellation of symptoms including abdominal cramping, epigastric pain, nausea, reflux, ringing or ears, dizziness that sound like a mixture of near syncope and vertigo. Does have a history of IBS as well as M?ni?re's disease and chronic sinusitis. Was just on antibiotics as well. Differential includes dehydration, JENNIFER, electrolyte abnormality, peripheral vertigo, gastritis, pancreatitis, acute dehydration, abdominal migraine. Abdomen is soft and lower suspicion for acute surgical normality especially given normal lab work. CT of the abdomen pelvis is considered but patient had recent abdominal imaging that showed fatty liver. Given her normal blood work and relatively benign abdominal exam will defer. Orthostatic vital signs are negative I do not think she requires IV fluids at this time. Patient is given a mixture of Toradol, meclizine, Reglan and Levsin with significant improvement of her symptoms. Did obtain CT of her sinuses as she is having of this dizziness and reports chronic sinus congestion and pain. Want to ensure that she does not have a more severe abscess or infection. CT shows near complete opacification of the right maxillary sinus related to chronic sinusitis. Patient will be given referral for ENT as well as neurology. I did speak with her GI doctor, Dr. Hicks. He recommends having her continue her antacid (Dex lansoprazole) as well as given a prescription for Levsin as needed for breakthrough abdominal cramping pain when the Bentyl is not helpful. Patient is comfortable this plan but does not think she will continue this antacid as she attributes a lot of her symptoms to starting this medication. Discussed with patient that that is for her to ultimately decide and follow-up with her GI doctor. She is agreeable this plan of care. Given return precautions. Discharged home in stable and improved condition. History & Record Review Additional record(s) reviewed:: Prior outpatient record Lab Data Attestation: I reviewed the patient's lab results. Labs: Laboratory Results - last 24 hr 12/22/23 12/22/23 14:54 15:45 WBC 6.8 RBC 4.64 Hgb 13.8 Hct 42.7 MCV 92.0 MCH 29.7 MCHC 32.3 RDW Std Deviation 42.3 RDW Coeff of Bill 12.6 Plt Count 299 MPV 11.1 Immature Gran % (Auto) 0.300 Neut % (Auto) 58.6 Lymph % (Auto) 29.6 [place] % (Auto) 10.0 Eos % (Auto) 0.6 Baso % (Auto) 0.9 Absolute Neuts (auto) 4.0 Absolute Lymphs (auto) 2.02 Nucleated RBC % 0 Sodium 141 Potassium 4.4 Chloride 109 H Carbon Dioxide 27.0 Anion Gap 5 BUN 8 Creatinine 0.94 Estim Creat Clear Calc 68.87 Est GFR (MDRD) Af Amer 77 Est GFR (MDRD) Non-Af 64 BUN/Creatinine Ratio 8.5 L Glucose 101 Calcium 9.4 Total Bilirubin 0.60 AST 20 ALT 30 Alkaline Phosphatase 92 Total Protein 7.3 Albumin 3.9 Globulin 3.4 Albumin/Globulin Ratio 1.1 Lipase 47 Urine Color Yellow Urine Clarity Clear Urine pH 8.0 Ur Specific Allen 1.010 Urine Protein Negative Urine Glucose (UA) Normal Urine Ketones Negative Urine Occult Blood Negative Urine Nitrite Negative Urine Bilirubin Negative Urine Urobilinogen Normal Ur Leukocyte Esterase Negative Urine RBC 0-5 SEEN Urine WBC 0-5 SEEN Ur Squamous Epith Cells 0-5 SEEN Urine Bacteria 0 SEEN Urine Mucus 0 SEEN Radiography Diagnostic Testing: Clinical Impression(s) from Imaging Studies Facial/Sinus 12/22/23 16:30 IMPRESSION: Near complete opacification of the right maxillary sinus related to chronic sinusitis. Electronically Signed: Aristeo Godoy MD at 17:29 EST , Discharge Plan Triage Chief Complaint: Abd Pain ED Provider: Moon Guillen Dx/Rx/DC Orders Clinical Impression: Heartburn, Abdominal pain, Nausea, Diarrhea, Chronic right maxillary sinusitis Instructions: ED Abdominal Pain Unkn Cause Fem, ED Sinusitis (Not Bacterial) Prescriptions: New hyoscyamine sulfate [Symax-SL] 0.125 mg tablet, sublingual 0.125 mg sublingual TID PRN (Reason: dyspepsia) Qty: 20 0RF meclizine 25 mg tablet 25 mg PO 4X/DAY PRN PRN (Reason: Dizziness) Qty: 20 0RF No Action magnesium citrate 100 mg tablet 100 mg PO DAILY dicyclomine 20 mg tablet 20 mg PO Q6H PRN MDD 80mg PRN (Reason: abdominal pain) Qty: 90 0RF sucralfate [Carafate] 1 gram tablet 1 g PO QAC Qty: 90 1RF dexlansoprazole [Dexilant] 60 mg capsule,biphase delayed releas 60 mg PO QDAY Qty: 30 0RF Primary Care Provider: Je Rider Referrals: Je Rider MD [Primary Care Provider] - Stefano Francois MD [Med Staff - Active Staff] - As soon as possible Jaime Olson MD [Non-Staff -Ordering Privileges] - As soon as possible Activity Restrictions/Additional Instructions: Your lab work today was very reassuring. You do have findings cyst with chronic sinusitis of the right maxillary sinus (over the right cheek). I do recommend you follow-up with ear nose and throat. As we discussed it is hard to tell if the symptoms are related to acid reflux, IBS or possibly an abdominal migraine. Please continue to follow-up with your GI doctor as well as follow-up with neurology. We given information to schedule follow-up. Return if you have a progression worsening your symptoms. You may continue to take your Bentyl but we do recommend that you just take the Levsin as needed for breakthrough abdominal discomfort. Do not routinely take both medications. Print Language: Georgian Disposition Disposition: Home, Self Care
[2023-12-22 16:53] LABS: Lipase 47 U/L (13-75)
[2023-12-22] MEDS: Meclizine HCl 25 MG Tablet PO (16:55)
[2023-12-22] MEDS: Hyoscyamine Sulfate 0.125 MG Tablet SL (16:56)
[2023-12-22] MEDS: Metoclopramide 10 MG/2 ML Vial 5 MG IV (16:57)
[2023-12-22] MEDS: Ketorolac 15 MG/ML Vial IV (16:59)
[2023-12-22 17:11] VITALS: BP 96/49
[2023-12-22 19:00] VITALS: BP 110/57
[2023-12-22 19:49] VITALS: BP 108/52; PULSE 75; RESP 16; TEMP 36.9; O2SAT 97
== END 2023-12-22 19:50 | disposition home or self-care (01) ==
PROVIDERS: Emergency Provider Emergency Medicine; Visit Provider Emergency Medicine
DX: R12 Heartburn (principal); R19.7 Diarrhea, unspecified; R42 Dizziness and giddiness; R55 Syncope and collapse; E78.00 Pure hypercholesterolemia, unspecified; K76.0 Fatty (change of) liver, not elsewhere classified; R11.0 Nausea; Z79.899 Other long term (current) drug therapy; K21.9 Gastro-esophageal reflux disease without esophagitis; R51.9 Headache, unspecified; J32.0 Chronic maxillary sinusitis; R10.9 Unspecified abdominal pain
CPT/HCPCS: 70486; 80053; 81001; 83690; 85025; 96374; 96375; 99283; A4216

== ENCOUNTER → 2024-01-01 | Outpatient (CLI) | payer OTHER, SELFPAY ==
[2024-01-07 14:10] LABS: Beef <0.10 kU/L (Class 0); Chocolate <0.10 kU/L (Class 0); Codfish <0.10 kU/L (Class 0); Corn <0.10 kU/L (Class 0); Egg, Whole <0.10 kU/L (Class 0); Milk (Cow) 0.14 kU/L (Class 0/I); Mussels <0.10 kU/L (Class 0); Peanut <0.10 kU/L (Class 0); Pork <0.10 kU/L (Class 0); Salmon <0.10 kU/L (Class 0); Serotonin, Serum 314 ng/mL (8-217); Shrimp <0.10 kU/L (Class 0); Soybean <0.10 kU/L (Class 0); Tuna <0.10 kU/L (Class 0); Wheat <0.10 kU/L (Class 0)
== END | disposition home or self-care (01) ==
LOC: LAB 14:08
PROVIDERS: Referring Provider Student in an Organized Health Care Education/Training Program; Visit Provider Student in an Organized Health Care Education/Training Program
DX: R10.13 Epigastric pain (principal); R11.10 Vomiting, unspecified
CPT/HCPCS: 36415; 84260; 86003; 86005

== ENCOUNTER → 2024-01-15 | Outpatient (CLI) | payer OTHER, SELFPAY | END | disposition home or self-care (01) | PROVIDERS: PCP Internal Medicine Nephrology; Referring Provider Internal Medicine Gastroenterology; Visit Provider Internal Medicine Gastroenterology | DX: R10.11 Right upper quadrant pain (principal); R10.13 Epigastric pain ==

== ENCOUNTER → 2024-02-04 | Outpatient (CLI) | payer OTHER, SELFPAY ==
[2024-02-04 10:15] LABS: Magnesium 2.6 mg/dL (1.6-2.6)
[2024-02-13 17:06] LABS: Chromogranin A 93.3 ng/mL (0.0-101.8); Serotonin, Serum 134 ng/mL (8-217)
== END | disposition home or self-care (01) ==
LOC: LAB 09:22
PROVIDERS: Referring Provider Student in an Organized Health Care Education/Training Program; Visit Provider Student in an Organized Health Care Education/Training Program
DX: R10.13 Epigastric pain (principal); R10.11 Right upper quadrant pain
CPT/HCPCS: 36415; 83735; 84260; 86316

== ENCOUNTER → 2024-03-08 | Outpatient (CLI) | payer OTHER, SELFPAY ==
[2024-03-08 09:20] LABS: Absolute Lymphocyte Count 2.17 X10^3/uL (0.83-4.51); Absolute Neutrophil Count 2.7 X10^3/uL (2.0-7.7); Basophil# 0.06 X10^3/uL; Basophil% 1.1 % (0-1); Eosinophil# 0.15 X10^3/uL; Eosinophils% 2.6 % (0-5); Hematocrit 43.8 % (37-47); Hemoglobin 13.9 g/dL (12.0-15.0); Lymphocyte # 2.17 X10^3/ul (0.83-4.51); Lymphocyte % 38.1 % (19-41); Mean Corp Hgb Conc 31.7 g/dL (32-36); Mean Corpuscular Hgb 29.4 pg (27.0-32.0); Mean Corpuscular Volume 92.6 fL (81-99); Mean Platelet Vol. 10.7 fl (6.2-12.0); Monocyte# 0.62 X10^3/uL; Monocyte% 10.9 % (0-10); NRBC Flagged by Analyzer 0 % (0-5); Neutrophil # 2.68 X10^3/uL (2.7-7.7); Neutrophil % 47.1 % (47-70); Platelet Count 282 K/mm3 (150-450); RBC Distribution Width CV 13.2 % (11.6-14.6); RBC Distribution Width SD 44.9 fl (35.1-43.9); Red Blood Count 4.73 M/mm3 (4.2-5.4); White Blood Count 5.7 K/mm3 (4.4-11.0)
[2024-03-08 09:39] LABS: AST(SGOT) 19 U/L (15-37); Alanine Aminotransfer ALT/SGPT 31 U/L (13-56); Albumin, Serum 3.7 g/dL (3.2-5.0); Alkaline Phosphatase 100 U/L (45-117); Anion Gap 5 (5-15); BUN 9 mg/dL (7-18); BUN/Creat Ratio 9.4 RATIO (10-20); Calcium,Total 9.6 mg/dL (8.5-10.1); Chloride 107 mmol/L (98-107); Creatinine, Serum 0.96 mg/dL (0.55-1.02); EST Glomerular Filtration Rate 62 mL/min (>60); Est Glom Filt Rate - Afr Amer 75 mL/min (>60); Globulin 3.6 g/dL (2.2-4.2); Glucose 94 mg/dL (74-106); Potassium 4.7 mmol/L (3.5-5.1); Protein, Total 7.3 g/dL (6.4-8.2); Sodium Level 142 mmol/L (136-145)
--- NOTE | 2024-03-08 12:24 | PCM.TILTTABL ---
Staff Staff: Yasmin Gonsalez and Consuelo Jaime Summary Pre Test Resting HR: 83 Pre Test Resting BP: 106/69 Minimum Test HR: 0 Maximum Test HR: 127 Minimum Test BP: 0/0 Maximum Test BP: 133/73 Reason for Test Termination: Syncope Physician Tilt Table Report Patient's Physicians Primary Care Physician: Care Physician,No Primary Indications/Diagnosis: Recurrent syncope. Procedure Comments: Patient was brought to the noninvasive lab in the postabsorptive nonsedated state. Informed consent was obtained. Initial EKG was performed with demonstrated sinus rhythm with a rate of 76 bpm with a blood pressure 130/70 mmHg. The patient was then put in the 70 degree head upright tilt position. The initial heart rate was 86 bpm with a blood pressure 109/87mmHg. Throughout the 20-minute test there were no significant changes in heart rate or blood pressure and no significant symptomatology noted. The patient was then put in the recumbent position and then given 0.4 mg of sublingual nitroglycerin at 9:43 AM. The patient was stood back up and at 9:44 AM the heart rate was 111 bpm with a blood pressure 119/64 mmHg. The heart rate subsequently increased 227 bpm with a blood pressure remaining fairly stable and then the patient started complaining of being sweaty feeling funny and then slowly becoming bradycardic pale with a blood pressure which was unable to obtain. Patient became asystolic and required sternal rub and then subsequently regained full consciousness and heart rate and blood pressure. Patient heart rate recovered to 83 bpm blood pressure 110/68 and maintained fairly within normal limits. Patient was less diaphoretic. Summary: The above is suggestive of an abnormal tilt table test with likely vasodepressor and vagal component.
[2024-03-08 12:29] VITALS: BP 0/0; BP 106/69; BP 133/73
== END | disposition home or self-care (01) ==
PROVIDERS: Referring Provider Student in an Organized Health Care Education/Training Program; Visit Provider Student in an Organized Health Care Education/Training Program
DX: R55 Syncope and collapse (principal); R42 Dizziness and giddiness
CPT/HCPCS: 36415; 80053; 85025; 93660; A4216

== ENCOUNTER → 2024-04-01 | Outpatient (CLI) | payer OTHER, SELFPAY ==
[2024-04-01 10:21] LABS: Erythrocyte Sedimentation Rate 19 mm/hr (0-30)
[2024-04-01 11:06] LABS: CRP < 2.90 mg/L (0.0-3.0); Follicle Stimulating Hormone 89.1 mIU/mL; Free T3 2.3 pg/mL (2.18-3.98); Luteinizing Hormone 45.5 mIU/mL; T4 Free Direct 0.96 ng/dL (0.76-1.46)
[2024-04-05 04:07] LABS: Beef <0.10 kU/L (Class 0); Chocolate <0.10 kU/L (Class 0); Codfish <0.10 kU/L (Class 0); Corn <0.10 kU/L (Class 0); Egg, Whole <0.10 kU/L (Class 0); Milk (Cow) 0.11 kU/L (Class 0/I); Mussels <0.10 kU/L (Class 0); Peanut <0.10 kU/L (Class 0); Pork <0.10 kU/L (Class 0); Salmon <0.10 kU/L (Class 0); Shrimp <0.10 kU/L (Class 0); Soybean <0.10 kU/L (Class 0); Tuna <0.10 kU/L (Class 0); Wheat <0.10 kU/L (Class 0)
[2024-04-13 03:07] LABS: ALDOSTERONE/RENIN RATIO 12.8 (0.0-30.0); Aldosterone, Serum 5.5 ng/dL (0.0-30.0); Dopamine, Pl <30 pg/mL (0-48); Epinephrine, Pl 39 pg/mL (0-62); Estrogen, Total, Serum 68 pg/mL (40-244); Norepinephrine, Pl 867 pg/mL (0-874); Testosterone Free 1.2 pg/mL (0.0-4.2)
== END | disposition home or self-care (01) ==
LOC: LAB 09:33
PROVIDERS: Referring Provider Internal Medicine Gastroenterology; Visit Provider Internal Medicine Gastroenterology
DX: R55 Syncope and collapse (principal); R42 Dizziness and giddiness; R10.11 Right upper quadrant pain
CPT/HCPCS: 82024; 82088; 82384; 82533; 82672; 83001; 83002; 84244; 84402; 84439; 84443; 84481; 85652; 86003; 86005; 86140

== ENCOUNTER → 2024-04-29 | Outpatient (CLI) | payer OTHER, SELFPAY ==
--- NOTE | 2024-04-29 16:50 | CT_ITS ---
PROCEDURE: CT abdomen pelvis with IV contrast REASON FOR EXAM: Pain TECHNIQUE: Multiple contiguous axial images of the abdomen and pelvis were obtained after the administration of intravenous contrast. Two-dimensional coronal and sagittal reformatted images were reconstructed. Low-dose imaging technique was utilized. COMPARISON: None. FINDINGS: Lung bases are clear. Hepatic steatosis. A couple hypodense lesions in the posterior right hepatic lobe which may relate to cysts or hemangiomas. Spleen, pancreas and adrenal glands are intact. Gallbladder is satisfactory. No significant biliary ductal dilation. Kidneys enhance symmetrically. No suspicious renal mass or calculi. Borderline mild right hydronephrosis, however there are no obstructing calculi. Urinary bladder is intact. No bowel obstruction, focal bowel wall thickening or significant perienteric inflammation. Mild fecal retention. Normal appendix. No pelvic free fluid. No free air. No abdominal aortic aneurysm or suspicious adenopathy. Superficial soft tissues are within normal limits. No acute osseous abnormality. CT/Abdomen/Pelvis WITH Contrast IMPRESSION: 1. No acute process. 2. Probable hepatic cysts/hemangiomas. Recommend confirmation with contrast-en hanced MRI. Reading Location: [facility]
== END | disposition home or self-care (01) ==
LOC: CT 16:42
PROVIDERS: Referring Provider Internal Medicine Gastroenterology; Visit Provider Internal Medicine Gastroenterology
DX: R10.13 Epigastric pain (principal)
CPT/HCPCS: 74177; Q9967; A4216